=== PATIENT | female | born 1975 | race Caucasian/White ===

== ENCOUNTER 2023-08-28 19:27 | Emergency (ER) | payer SELFPAY ==
[~2023-08-28] VITALS: Ht 172.7 cm; Wt 90.9 kg
[2023-08-28 19:29] VITALS: TEMP 98.1
[2023-08-28 20:41] VITALS: BP 144/79; PULSE 67
== END 2023-08-28 20:41 | disposition home or self-care (01) ==
LOC: COL.ER 19:27
DX: S99.911A Unspecified injury of right ankle, initial encounter (principal); W17.2XXA Fall into hole, initial encounter; Y93.01 Activity, walking, marching and hiking; Y92.096 Garden or yard of other non-institutional residence as the place of occurrence of the external cause